=== PATIENT | female | born 1980 | race Caucasian/White ===

== ENCOUNTER → 2021-02-28 | Outpatient (CLI) | payer OTHER ==
[2021-02-28 12:55] LABS: BASO # 0.1 10*3/uL (0.0-0.1); BASO % 0.6 % (0.0-1.0); EOS # 0.2 10*3/uL (0.0-0.4); EOS % 1.7 % (1.0-4.0); HEMATOCRIT 42.3 % (37.0-47.0); LYMPH # 3.2 10*3/uL (1.3-4.4); MEAN CELL VOLUME 87.4 fl (81.0-99.0); MEAN CORPUSCULAR HGB 28.9 pg (27.0-31.0); MEAN CORPUSCULAR HGB CONC 33.1 g/dl (33.0-37.0); MEAN PLATELET VOLUME 9.2 fl (9.6-12.3); MONO # 0.8 10*3/uL (0.1-1.0); MONO % 8.2 % (3.0-9.0); NEUT # 5.7 10*3/uL (2.3-7.9); NEUT % 57.2 % (47.0-73.0); PLATELET COUNT AUTOMATED 314 10*3/uL (130-400); RED BLOOD COUNT 4.84 10*6/uL (4.10-5.10); RED CELL DISTRI WIDTH 11.4 % (0-14.5)
[2021-02-28 13:26] LABS: ALBUMIN 3.9 gm/dl (3.1-4.5); ALKALINE PHOSPHATASE 40 U/L (45-117); BUN 14 mg/dl (7-24); CHLORIDE 105 mmol/L (98-107); CHOLESTEROL 219 mg/dL (<200); CREATININE 1.17 mg/dL (0.55-1.02); LDL CHOLESTEROL 130 mg/dL (9-159); POTASSIUM 3.9 mmol/L (3.5-5.1); SGOT/AST 13 IU/L (3-35); SGPT/ALT 28 U/L (12-78); SODIUM 138 mmol/L (136-145); TOTAL PROTEIN 7.6 gm/dL (6.4-8.2); TRIGLYCERIDES 167 mg/dl (<150)
[2021-02-28 13:46] LABS: VITAMIN D, 25-HYDROXY 17.2 ng/mL (30-100)
== END | disposition home or self-care (01) ==
LOC: LAB 12:36
PROVIDERS: ATTEND Internal Medicine
DX: Z00.00 Encounter for general adult medical examination without abnormal findings (principal); E03.9 Hypothyroidism, unspecified; R73.9 Hyperglycemia, unspecified; E55.9 Vitamin D deficiency, unspecified; N18.31 Chronic kidney disease, stage 3a; K58.9 Irritable bowel syndrome, unspecified

== ENCOUNTER → 2021-03-09 | Outpatient (CLI) | payer OTHER | END | disposition home or self-care (01) | LOC: US 10:34 | PROVIDERS: ATTEND Internal Medicine | DX: R79.89 Other specified abnormal findings of blood chemistry (principal) ==

== ENCOUNTER → 2022-02-28 | Outpatient (CLI) | payer OTHER ==
[2022-02-28 11:22] LABS: BASO # 0.1 10*3/uL (0.0-0.1); EOS # 0.2 10*3/uL (0.0-0.4); HEMATOCRIT 43.9 % (37.0-47.0); LYMPH # 2.6 10*3/uL (1.3-4.4); LYMPH % 32.7 % (27.0-41.0); MEAN CELL VOLUME 88.2 fl (81.0-99.0); MEAN CORPUSCULAR HGB 29.5 pg (27.0-31.0); MEAN CORPUSCULAR HGB CONC 33.5 g/dl (33.0-37.0); MEAN PLATELET VOLUME 8.7 fl (9.6-12.3); MONO # 0.6 10*3/uL (0.1-1.0); NEUT # 4.5 10*3/uL (2.3-7.9); NEUT % 56.1 % (47.0-73.0); PLATELET COUNT AUTOMATED 340 10*3/uL (130-400); RED BLOOD COUNT 4.98 10*6/uL (4.10-5.10); RED CELL DISTRI WIDTH 11.8 % (0-14.5)
[2022-02-28 11:40] LABS: BUN 12 mg/dl (7-24); CHLORIDE 107 mmol/L (98-107); CHOLESTEROL 241 mg/dL (<200); CREATININE 1.02 mg/dL (0.55-1.02); FREE T4 0.89 ng/dl (0.76-1.46); LDL CHOLESTEROL 151 mg/dL (9-159); POTASSIUM 4.3 mmol/L (3.5-5.1); SGPT/ALT 31 U/L (12-78); SODIUM 140 mmol/L (136-145); TOTAL PROTEIN 7.4 gm/dL (6.4-8.2); TRIGLYCERIDES 145 mg/dl (<150)
[2022-02-28 11:44] LABS: ALKALINE PHOSPHATASE 41 U/L (45-117); SGOT/AST 13 IU/L (3-35)
[2022-02-28 12:07] LABS: VITAMIN D, 25-HYDROXY 13.4 ng/mL (30-100)
[2022-03-01 04:06] LABS: FOLLICLE STIMULATING HORMONE 3.2 mIU/mL (.)
== END ==
LOC: LAB 10:57
PROVIDERS: ATTEND Internal Medicine
DX: Z13.0 Encounter for screening for diseases of the blood and blood-forming organs and certain disorders involving the immune mechanism (principal); Z13.1 Encounter for screening for diabetes mellitus; Z13.21 Encounter for screening for nutritional disorder; Z13.220 Encounter for screening for lipoid disorders; Z13.228 Encounter for screening for other metabolic disorders; Z13.29 Encounter for screening for other suspected endocrine disorder; Z13.6 Encounter for screening for cardiovascular disorders; Z13.89 Encounter for screening for other disorder; Z13.9 Encounter for screening, unspecified; E55.9 Vitamin D deficiency, unspecified; E03.9 Hypothyroidism, unspecified; N18.31 Chronic kidney disease, stage 3a

== ENCOUNTER → 2024-06-12 | Outpatient (CLI) | payer OTHER ==
[2024-06-12 10:47] LABS: BASO % 0.5 % (0.0-1.0); EOS # 0.1 10*3/uL (0.0-0.4); EOS % 1.1 % (1.0-4.0); HEMATOCRIT 43.8 % (37.0-47.0); MEAN CELL VOLUME 89.8 fl (81.0-99.0); MEAN CORPUSCULAR HGB 30.5 pg (27.0-31.0); MEAN PLATELET VOLUME 8.7 fl (9.6-12.3); MONO # 0.6 10*3/uL (0.1-1.0); NEUT # 4.5 10*3/uL (2.3-7.9); NEUT % 57.5 % (47.0-73.0); PLATELET COUNT AUTOMATED 284 10*3/uL (130-400); RED BLOOD COUNT 4.88 10*6/uL (4.10-5.10); RED CELL DISTRI WIDTH 11.9 % (0-14.5); WHITE BLOOD COUNT 7.8 10*3/uL (4.8-10.8)
[2024-06-12 11:14] LABS: ALKALINE PHOSPHATASE 32 U/L (46-116); BUN 14 mg/dl (9-23); CHLORIDE 102 mmol/L (98-107); CHOLESTEROL 149 mg/dL (<200); FREE T4 1.02 ng/dl (0.89-1.76); LDL CHOLESTEROL 66 mg/dL (9-159); POTASSIUM 4.1 mmol/L (3.4-5.1); SGPT/ALT 13 U/L (5-49); TOTAL PROTEIN 7.2 gm/dL (6.0-8.0); TRIGLYCERIDES 97 mg/dl (<150)
[2024-06-12 11:37] LABS: VITAMIN D, 25-HYDROXY 27.1 ng/mL (30-100)
== END | disposition home or self-care (01) ==
LOC: LAB 10:34
PROVIDERS: ATTEND Internal Medicine
DX: E55.9 Vitamin D deficiency, unspecified (principal); E78.2 Mixed hyperlipidemia; R53.83 Other fatigue; E53.9 Vitamin B deficiency, unspecified

== ENCOUNTER → 2024-09-17 | Outpatient (CLI) | payer OTHER | END | disposition home or self-care (01) | LOC: RAD 12:46 | PROVIDERS: ATTEND Internal Medicine | DX: R06.02 Shortness of breath (principal) ==